=== PATIENT | female | born 1955 | race Caucasian/White ===

== ENCOUNTER 2018-11-13 06:50 | Day surgery (SDC) | payer MEDICARE, OTHER ==
[2018-11-12 09:53] LABS: BASOPHILS 0.7 % (0-2); EOSINOPHILS 8.4 % (0-7); HEMATOCRIT 38.9 % (36.0-48.0); HEMOGLOBIN 12.7 g/dL (12-16); LYMPHOCYTES 32.2 % (15-50); MCH 28.8 pg (26.0-34.0); MCHC 32.6 g/dL (31.0-37.0); MCV 88.2 fL (80.0-100.0); MEAN PLATELET VOLUME 11.3 fL (7.4-10.4); MONOCYTES 6.3 % (2-11); NEUTROPHILS 52.4 % (40-80); PLATELET COUNT 193 10x3/uL (130-400); RBC 4.41 10x6/uL (4.00-5.40); RDW 13.8 % (11.5-14.5); WBC 6.7 10x3/uL (4.8-10.8)
[2018-11-12 10:50] LABS: CALC OSMOLALITY 270 mosm/kg (275-300); CHLORIDE - SERUM 102 mmol/L (98-107); CREATININE - SERUM 0.8 mg/dL (0.6-1.3); GLUCOSE 87 mg/dL (74-106); POTASSIUM - SERUM 4.3 mmol/L (3.5-5.1); SODIUM 135 mmol/L (136-145); UREA NITROGEN 19 mg/dL (7-18); eGFR NON AFRICAN AMERICAN 77 mL/min (90-120)
[~2018-11-13] VITALS: Ht 172.7 cm; Wt 83.9 kg
[~2018-11-13 06:50] MED LIST: COZAAR50 MG PO; FUROSEMIDE40 MG PO; GLUCOSAMINE HC500 MG PO; NEURONTIN 300300 MG PO; PROAIR INHALER; REQUIP3 MG PO; ZOLOFT50 MG
[2018-11-13] MEDS ORDERED: RESTASIS (07:32)
[2018-11-13 07:33] VITALS: BP 145/76; Ht 172.7 cm; Wt 83.9 kg
[2018-11-13] MEDS ORDERED: ULTRAM50 MG PO (08:45)
--- NOTE | 2018-11-13 09:20 | NUR ---
0910 ICE PACK PROVIDED. 0915 FL DIET SERVED.
--- NOTE | 2018-11-22 07:19 | OP ---
PATIENT NAME: ALTHEA CONDON MEDICAL RECORD: [id number] :59 LOCATION:D.OPS ADMISSION DATE: SURGEON: ERNESTO FARAH MD DATE OF OPERATION: 11/13/2018 PREOPERATIVE DIAGNOSES: 1. In situ port. 2. Hypertension. 3. Asthma. POSTOPERATIVE DIAGNOSES: 1. In situ port. 2. Hypertension. 3. Asthma. PROCEDURE: Left subclavian vein port removal. SURGEON: Ernesto Farah MD REPORT OF PROCEDURE: The patient's left chest was prepped and draped in sterile fashion. A transverse incision was made overlying the port through an old scar. Electrocautery was used to dissect through the subcutaneous tissues. We were able to eviscerate the scar through the wound. There were 2 Prolene sutures holding it in place and these were ligated and removed. The port was then removed in total and the catheter tract was oversewn with a [id number] 3-0 Vicryl. The subcutaneous tissues were reapproximated with interrupted 3-0 Vicryls and the skin was closed with running subcutaneous 5-0 Monocryl. COMPLICATIONS: None. CONDITION: Stable. ANESTHESIA: General endotracheal. BLOOD LOSS: Minimal. TRANSINT:[id number] Voice Confirmation ID: [id number] DOCUMENT ID: [id number] ERNESTO FARAH MD at 0719 CC: [id number] DICTATION DATE: 11/13/18 0847 BIOCHEMIST: 11/13/18 0853 [facility] 11/13/[address] [address]
== END 2018-11-13 10:15 | disposition home or self-care (01) ==
LOC: D.OPS 06:50
PROVIDERS: ATTEND Surgery
DX: Z09 Encounter for follow-up examination after completed treatment for conditions other than malignant neoplasm (principal); I10 Essential (primary) hypertension; J45.909 Unspecified asthma, uncomplicated